=== PATIENT | female | born 1970 | race Hispanic/Latino ===

== ENCOUNTER 2016-11-29 18:31 | Emergency (ER) | payer SELFPAY ==
[~2016-11-29 18:31] MED LIST: OMEP-113 PO
[2016-11-29 18:55] VITALS: BP 120/75; PULSE 85; RESP 20; O2SAT 98
[2016-11-29 19:45] LABS: BASOPHILS % (AUTO) 0.4 % (0-3); EOSINOPHILS % (AUTO) 2.7 % (0-5); Mean Corpuscular Hemoglobin 27.8 pg (27.0-35.0); Mean Corpuscular Volume 86.8 fL (81-100); NEUTROPHILS % (AUTO) 46.6 % (40-74); Platelet Count 315 bil/L (150-400)
[2016-11-29] MEDS ORDERED: Ketorolac 30 mg/mL 2 mL Inj IM ONE (20:35)
--- NOTE | 2016-11-29 21:45 | ED.REPORT ---
HPI- Female Date of Service Nov 29, 2016 ED Provider: Nicholas Byrnes MD A 46 year old female with a history of gastritis, GERD, and nephrolithiasis s/p x2 and tubal ligation presents to the ED with pelvic pain onset six months ago. The pain is described as "pressure" and "similar to labor contractions," worsening one week ago after a PAP smear and again at 0500 this morning. The patient reports associated menorrhagia, headache, dysuria, and dizziness. She denies vaginal bleeding, vaginal discharge, vomiting, diarrhea, hematochezia, fever, or urinary frequency. The patient occasionally takes Ibuprofen for the pain, but this upsets her stomach. She has been seen her PCP multiple times since onset of her symptoms and was seen by a porcelain waxer recently. A pelvic US on 09/22/16 indicated "nonspecific heterogeneity of the uterine myometrium and a left ovarian 2.4 cm mass consistent with physiologic cyst." She had a scheduled biopsy but was unable to follow through because of her pain. The patient speaks Mohawk and her daughter was translating. Nursing Notes Stated Complaint: LOWER ABDOMINAL PAIN Chief Complaint: Female Abdominal Pain Nursing Notes Reviewed: Yes Allergies: Coded Allergies: hydrocodone (Verified Adverse Reaction, Intermediate, vomit, 12/14/15) oxycodone (Verified Adverse Reaction, Mild, vomit, 12/14/15) Scheduled Omeprazole Magnesium (Omeprazole) 20 Mg Capsule.dr 40 MG PO TID General Time Seen by MD: 21:04 Chief Complaint Pelvic pain Hx Obtained From: Patient Arrived By: Walk-in Sudden in Onset?: No Onset Occurred: More than a week ago... (6 months) Symptom Duration: Since onset Location: : Abdomen lower Quality: Painful Severity: Current: Moderate Severity: Maximum: Moderate Associated with: Reports: UTI symptoms... (Dysuria), Denies: Fever, Vomiting Pertinent Negative: Relieved by nothing Related History: Reports: Abdominal surgery Recent Healthcare: Recent doctor visit Similar Sx Previous: Yes Past Medical History Past Medical History Gastritis GERD Nephrolithiasis Past Surgical History Reports: (x2) Reports: Tubal ligation Smoking History Never Smoker Social History Alcohol Use: Denies alcohol use Other Social History: Good social support, Lives with children Ambulatory Status Independent Review of Systems Review of Systems Note: + Menorrhagia Constitutional: Denies: Fever GI: Denies: Diarrhea, Hematochezia, Vomiting Female: Reports: Dysuria, Pelvic pain, Denies: Urinary frequency, Vaginal bleeding - abnl, Vaginal discharge Neurologic: Reports: Dizziness, Headache Complete sys rev & neg: except as marked. Physical Exam Initial Vital Signs Vital Signs (First) Date Time Temp Pulse Resp B/P Pulse Ox O2 Delivery O2 Flow Rate FiO2 11/29/16 18:55 36.3 85 20 120/75 98 Room Air Initial VS: Reviewed Head / Eyes: Atraumatic, Normocephalic ENT: Conjunctiva normal, No scleral icterus Neck: Supple, Full range of motion Respiratory: No respiratory distress Skin: Warm, Dry Neurologic: Alert, Oriented, Nonfocal Psychiatric: Mood/affect normal, Behavior normal, Normal thought content General/Constitutional: Awake, Alert Abdomen: BS normoactive Tenderness/Guarding/Rebound: Positive: Tender suprapubic Interpretation & Diagnostics URINE DIPSTICK: 1.015 sp gravity 7 pH Trace Protein Normal Glucose Normal Urobilinogen + Bilirubin ~ 250 Dashawn/ml Blood Otherwise Negative Lab Results Interpretation Result Diagram: 11/29/16191911/29/161919 Test 11/29/16 19:20 11/29/16 21:56 White Blood Count 7.1th/mm3 (3.8-10.1) Red Blood Count 4.32mil/mm3 (3.90-5.20) Hemoglobin 12.0g/dL (12.0-15.6) Hematocrit 37.5% (35.0-46.0) Mean Corpuscular Volume 86.8fL (81-100) Mean Corpuscular Hemoglobin 27.8pg (27.0-35.0) Mean Corpuscular Hemoglobin Concent 32.0% (32.0-37.0) Red Cell Distribution Width 14.2% (12.3-15.4) Platelet Count 315bil/L (150-400) Neutrophils (%) (Auto) 46.6% (40-74) Lymphocytes (%) (Auto) 39.2% (14-46) Monocytes (%) (Auto) 11.0% (4-12) Eosinophils (%) (Auto) 2.7% (0-5) Basophils (%) (Auto) 0.4% (0-3) Sodium Level 139mEq/L (134-144) Potassium Level 4.0mEq/L (3.5-5.2) Chloride Level 102mEq/L (97-108) Carbon Dioxide Level 24mmol/L (18-29) Blood Urea Nitrogen 15mg/dL (6-24) Creatinine 0.68mg/dL (0.57-1.00) Estimat Glomerular Filtration Rate 135mL/min (>59) Glucose Level 129mg/dL (60-99) Calcium Level 8.5mg/dL (8.5-10.1) Magnesium Level 2.0mg/dL (1.6-2.6) Total Bilirubin 0.2mg/dL (0.0-1.2) Aspartate Amino Transf (AST/SGOT) 20U/L (0-50) Alanine Aminotransferase (ALT/SGPT) 17U/L (0-32) Alkaline Phosphatase 70U/L (25-150) Total Protein 7.5g/dL (6.4-8.4) Albumin 3.9g/dL (3.4-5.0) Lipase 46U/L (13-60) Hold Teixeira Top Tube Received (Received) Urine Color Yellow (YELLOW) Urine Appearance Clear (CLEAR,HAZY) Urine pH 6.0 (5.0-8.0) Urine Specific [place] 1.040 (1.003-1.035) Urine Protein Negativemg/dL (NEG,TRACE) Urine Glucose (UA) Negativemg/dL (NEGATIVE) Urine Ketones Negativemg/dL (NEGATIVE) Urine Occult Blood Negative (NEGATIVE) Urine Nitrite Negative (NEGATIVE) Urine Bilirubin Negative (NEGATIVE) Urine Urobilinogen Normalmg/dL (NORMAL) Urine Leukocyte Esterase Negative (NEGATIVE) Urine RBC 0-2/hpf (0-2) Urine WBC 0-5/hpf (0-5) Urine Epithelial Cells Few/hpf (NONE-MOD) Urine Crystals None seen (NONE SEEN) Urine Bacteria Few/hpf (NONE-FEW) Urine Hyaline Casts None/lpf (NONE) Urine Granular Casts None seen (NONE SEEN) Urine Waxy Casts None seen (NONE SEEN) Urine Red Blood Cell Casts None seen (NONE SEEN) Urine White Blood Cell Casts None seen (NONE SEEN) Urine Mucus None seen (None Seen) Urine Trichomonas None seen (NONE SEEN) Urine Yeast None (NONE SEEN) Urinalysis Comment None Urine Culture Reflexed Not indicated Re-Eval/Medical Decision Source of Hx: Old records Re-Evaluation/Progress : Time of Eval: 22:32 Patient Status: Condition improved Re-Evaluation/Progress Note: Discussed with patient lab results, diagnosis, and plan for discharge. Follow-up and return to the ER instructions given. Patient agrees with plan for care and all questions were addressed. Consultation : Referral / Consult Name: Joanna Cruz MD Call Returned at: 22:22 Icing Maker: Agrees with eval, Agrees with plan Note: Senior [employer] Et[employer] Developer evaluation analyst: Clinic is aware of patient's case and has been made aware she was here tonight. Counseled Regarding: Diagnosis, Lab results, Need for follow-up, When/why to return to ED Discharge & Departure Impression: Primary Impression: Pelvic pain Disposition: Home Discharge Condition All VS Reviewed: Yes Condition: Stable Additional Instructions: ED evaluation included interview exam, labs and review of records. Case was discussed with evaluation analyst porcelain waxer covering [facility]. We advise contacting them for follow-up as soon as possible. there is not an acute problem causing the pain tonight. Use ibuprofen 800mg 3 times a day, take with food. return to ED for fevers, vomiting or severe vaginal bleeding- bleeding that soaks through clothes. Referrals: Jaz Ramos MD (PCP) Scribe Attestation Portions of this note were transcribed by Elda Levin. I, Dr. Byrnes, personally performed the history, physical exam, and medical decision-making; I reviewed and confirmed the accuracy of the information in the transcribed note. Signed by: Suni Velasco, 11/29/2016, 23:01 copies to: Jaz Ramos MD, Donald L MD Nov 29, 2016 21:45 ELDA LEVIN Nov 29, 2016 22:04
[2016-11-29 22:10] LABS: APPEARANCE,URINE CLEAR (CLEAR,HAZY); COLOR,URINE YELLOW (YELLOW); OCCULT BLOOD,URINE NEGATIVE (NEGATIVE); UROBILINOGEN,URINE NORMAL (NORMAL)
[2016-11-29 22:51] VITALS: BP 112/74; PULSE 84; RESP 20; O2SAT 99
[2017-01-03] MEDS ORDERED: IBUP800T28 PO (09:41)
[2017-01-03] MEDS ORDERED: ROB500 PO (09:41)
== END 2016-11-29 22:52 | disposition home or self-care (01) ==
LOC: SED 18:31
DX: R10.2 Pelvic and perineal pain (principal); N92.0 Excessive and frequent menstruation with regular cycle; R51 Headache; R42 Dizziness and giddiness; R30.0 Dysuria; K21.9 Gastro-esophageal reflux disease without esophagitis; Z88.5 Allergy status to narcotic agent
CPT/HCPCS: 36415; 80053; 81000; 81025; 83690; 83735; 85025; 96372; 99284; J1885

== ENCOUNTER 2017-01-04 11:45 | Day surgery (SDC) | payer SELFPAY ==
[2017-01-04] VITALS (11 sets, daily range): BP systolic 102–135; BP diastolic 44–71; PULSE 71–93; RESP 12–18; O2SAT 94–98
[~2017-01-04] VITALS: Ht 154.9 cm; Wt 83.2 kg
[~2017-01-04 11:45] MED LIST changes: +IBUP800T28 PO; -OMEP-113 PO; +ROB500 PO
[2017-01-04] MEDS ORDERED: fentaNYL-PF 50 mCg/mL 2 mL Inj ONE (11:46)
[2017-01-04] MEDS ORDERED: Ondansetron 2 mg/mL 2 mL Inj ONE (11:46)
[2017-01-04] MEDS: Lactated Ringer's 1,000 ML IV SCH ×2 (11:55→14:24)
--- NOTE | 2017-01-04 13:53 | PCM.HPANE ---
Patient Data Surgeon Admitting Provider: Attending Provider:Elicia Pantoja MD Primary Care Physician:Jaz Ramos MD Other Provider:Valentina Louiseingham Anesthesia Reason for Visit Abnormal Uterine Bleeding Ht/WT & BMI Height (Feet): 5 Height (Inches): 1 Weight (Kilograms): 83.2 Body Mass Index 34.00 Allergies Coded Allergies: hydrocodone (Verified Adverse Reaction, Intermediate, vomit, 12/14/15) oxycodone (Verified Adverse Reaction, Mild, vomit, 12/14/15) Past Anesthesia History Anesthesia History: Denies:: Abnormal Airway, Anesthesia Reactions, Difficult Intubation, Fam Anesthesia Reaction, Fam Malignant Hypertherm, Malignant Hyperthermia Diabetes History Hx Diabetes?: No MRSA MRSA: No Medications Hypertension Medication: No Home Meds Incl Beta Olga: No Reported Medications Ibuprofen 800 Mg [id number] Mg PO TID PRN For Pain Ref 0 01/03/17 Methocarbamol 500 Mg [id number] Mg PO TID PRN For Pain 01/03/17 Discontinued Reported Medications Omeprazole Magnesium (Omeprazole)20 Mg Capsule.dr40 Mg PO TID 30 Days Ref 0 05/20/14 History History of ENT Problems?: No HEENT History: Denies:: Abnormal Airway Difficult Intubation Dysphagia Hearing Problem Hx of Heart Problems?: No Cardiovascular History: Denies:: AICD Edema Hypertension Pacemaker Valvular Heart Disease Hx of Respiratory Problem?: No Respiratory History: Denies:: Asthma COPD Emphysema Oxygen Administration Use of C-PAP Machine Use of Inhalers / NEBS Hx Neurologic Problems?: Yes Neurological History: Positive for:: Headaches Denies:: Alzheimer's Disease CVA Dementia Dizziness Parkinson's Disease Seizures Hx of GI Problems?: Yes Gastrointestinal History: Positive for:: Gastroesphageal Reflux Heartburn Rectal Bleeding Denies:: Cirrhosis Diverticulitis Gastrointestinal Bleeding Hiatal Hernia Hx of Problems?: Yes Genitourinary History: Positive for:: Kidney Stones (remote hx of kidney stones) Denies:: Urinary Tract Infection Female Hx: Denies:: Currently (hx tubal ligation) Endometriosis Pelvic Inflammatory Problems with Breasts? Skin History: Denies:: History Skin Disorders? Pressure Ulcers Musculoskeletal History: Positive for:: Back Injury (sciatica- affecting right leg) Denies:: Fibromyalgia Joint Replacement Musculoskeletal Trauma Hx of Psycho/Social Problems?: Yes Psycho Social History: Positive for:: Suicide Attempt (remote hx of at age 17 ) Denies:: Anxiety Bipolar Disorder Hx Depression Hx Surgeries?: Yes (c-sections x2, tubal ligation) Hx Any Other Health Problems?: Yes Other History: Positive for:: Hospitalization Denies:: Cancer Endocrine Disease Thyroid Disease History Blood Transfusions: Denies:: Blood Transfuse Reaction Blood Transfusions Hx Diabetes: No Hx Alcohol Use: NoHx Substance Use: No Smoking Status: Never Smoker Have You Smoked inLast 12 mo: No Stop/Bang P-Blood Pressure: treated: No B- Body Mass Index > 35 kg/m2: Yes A- Age over 50: No N- Neck Large Circumference: No G- Gender Male: No Risk Assessment Category Category 1A: Patient has history of documented sleep apnea, and HAS NOT received any narcotic, sedative or anesthesia administration during this stay. Category 1B: Patient has history of documented sleep apnea, and HAS received any narcotic , sedative or anesthesia administration during this stay Category 2: Patient has SUSPECTED Obstructive Sleep Apnea, and HAS received any narcotic , sedative or anesthesia administration during this stay. Category 3: Patient has SUSPECTED Obstructive Sleep Apnea and HAS NOT received narcotic, sedative or anesthesia administration during this stay. Category 4: Outpatient in Procedural Areas with known sleep apnea or who screen positive for High Risk via the STOP/BANG questionnaire. Exam Exam Vital Signs Vital Signs Date Time Temp Pulse Resp B/P Pulse Ox O2 Delivery O2 Flow Rate FiO2 01/04/17 13:16 36.5 71 18 102/44 98 Room Air General Appearance: Alert, Oriented X3, Cooperative HEENT/AIRWAY: MP 2, Neck Movement (THick, FROM), Mouth Opening (Upper Partial) Lungs: Clear to Auscultation Heart: Exam Unremarkable Meds/Labs/Diagnostics Admission Meds Current Medications Lactated Ringer's (Lr) 1,000 ml @ 120 mls/hr Q8H20M IV Last administered on 11:55; Start 01/04/17 at 05:00; Stop 01/04/17 at 13:19; Status DC Acetaminophen (Tylenol) 1,000 mg PREOP ONCE PO Last administered on 01/04/17 13:49; Start 01/04/17 at 06:00; Stop 01/04/17 at 06:01; Status DC Gabapentin (Neurontin) 600 mg STK-MED ONCE .ROUTE Last administered on 13:48; Start 01/04/17 at 13:45; Stop 01/04/17 at 13:46; Status DC Celecoxib (CeleBREX) 200 mg STK-MED ONCE .ROUTE Last administered on 01/04/17 13:48; Start 01/04/17 at 13:45; Stop 01/04/17 at 13:46; Status DC Scopolamine (Transderm-Scop Patch) 1.5 mg STK-MED ONCE TOPICAL Last administered on 01/04/17 13:48; Start 01/04/17 at 13:46; Stop 01/04/17 at 13:47 ; Status DC Plan Impression Patient chart reviewed, patient interviewed and anesthestic plan with risks, benefits, and alternatives discussed, and informed consent obtained. NPO Status: > 8HRS ASA Physical Status: ASA2 Mod Systemic Disease Anesthetic Plan: GA Bene/Risks/Altern/Consents: Yes HP Complete Prior to Induction: Yes Anastacio Pozo MD Jan 04, 2017 13:53
[2017-01-04] MEDS ORDERED: Lactated Ringer's 500 ML IV PRN (14:51)
[2017-01-04] MEDS ORDERED: Lactated Ringer's 1,000 ML IV SCH (14:51)
[2017-01-04] MEDS ORDERED: Atropine 0.4 mg/mL Inj IVPUSH PRN (14:55)
[2017-01-04] MEDS ORDERED: Ondansetron 2 mg/mL 2 mL Inj IVPUSH PRN (14:55)
[2017-01-04] MEDS ORDERED: Dexamethasone 4 mg/mL Inj IVPUSH PRN (14:55)
[2017-01-04] MEDS ORDERED: HYDROmorphone 1 mg/mL Inj IVPUSH PRN (14:55)
[2017-01-04] MEDS ORDERED: EPHEDrine Sulfate 50 mg/mL Inj IVPUSH PRN (14:55)
[2017-01-04] MEDS ORDERED: hydrALAZINE 20 mg/mL Inj IVPUSH PRN (14:55)
[2017-01-04] MEDS ORDERED: fentaNYL-PF 50 mCg/mL 2 mL Inj IVPUSH PRN (14:55)
[2017-01-04] MEDS ORDERED: Phenylephrine 10,000 mCg/mL Inj IVPUSH PRN (14:55)
[2017-01-04] MEDS ORDERED: Labetalol 5 mg/mL 4 mL Inj IV PRN (14:55)
--- NOTE | 2017-01-04 15:13 | PCM.ANEP1 ---
Post Anesthesia Phase 1 PACU Phase 1 Assessment Vital Signs Vital Signs Date Time Temp Pulse Resp B/P Pulse Ox O2 Delivery O2 Flow Rate FiO2 01/04/17 13:16 36.5 71 18 102/44 98 Room Air Anesthetic Administered: GA Level of Alertness: Awake, talking CALDERON's with Equal Strength: Yes Pain: Yes Pain Scale Score: 8 Nausea or Vomiting: No Oxygen Delivery: Room Air Lungs: Normal Air Movement Anastacio Pozo MD Jan 04, 2017 15:13
[2017-01-04] MEDS: HYDROmorphone 0.5 mg/0.5 mL iSecure Syringe IVPUSH PRN ×2 (15:15→15:54)
--- NOTE | 2017-01-04 15:26 | PCM.DIOB ---
Obstetrical Disch Instruction Date of Service: Jan 04, 2017 Dates of Hospitalization Date of Hospital Admission OUT PATIENT SURGERY 01/04/17 Providers Admitting Physician: Primary Care Physician: Jaz Ramos MD Attending Physician: Elicia Pantoja MD Discharge Diagnosis Discharge Diagnosis Abnormal uterine bleeding status post hysteroscopy and dilation and curettage Problems: Diet Discharge Diet: No restrictions Activity Discharge Activity-General: Pelvic Rest for 6 weeks (no sex, no tampons and no douching), Balance rest and activity, No lifting >15 pounds for 2 weeks Dressing and Incisional Care Hygiene: May shower, NO bathtub, hot tub or whirlpool Follow Up Plan Follow-up Provider (F9): Elicia Pantoja MD Follow-up appointment: Weeks (Two) Call your provider for: Fever or Chills, Shortness of breath, Heavy vaginal bleeding, Heavy bleeding, Epigastric pain, Excessive constipation, Vaginal discomfort, Red painful breasts Elicia Pantoja MD Jan 04, 2017 15:26
[2017-01-04] MEDS ORDERED: MEDR10TA9 PO (15:29)
[2017-01-04] MEDS ORDERED: IBUP800T28 PO (15:29)
--- NOTE | 2017-01-05 02:39 | OP ---
[address] [address] OPERATIVE REPORT PATIENT: HARPER GRIFFITH : 1970 MR#: [id number] ADMIT: 01/04/2017 JOB ID: [id number] DATE OF SURGERY: 01/04/2017 PREOPERATIVE DIAGNOSIS(ES): Abnormal uterine bleeding. POSTOPERATIVE DIAGNOSIS(ES): 1. Abnormal uterine bleeding. 2. endometrial polyp. PROCEDURE: 1. Hysteroscopy. 2. Dilatation and curettage. COMPLICATIONS: None. SURGEON: Elicia Pantoja MD. MASCARA MOLDER: None. ESTIMATED BLOOD LOSS: 20 cc. INTRAVENOUS FLUID: 700 mL crystalloid fluid. URINE OUTPUT: The bladder was drained prior to the procedure, 50 cc of clear urine. ANESTHESIA: General. SPECIMEN: Endocervical curettings and endometrial curettings. FINDINGS: Exam under anesthesia revealed a mildly enlarged uterus approximately nine weeks in size, mobile with no palpable adnexal masses. Exam is limited by body habitus. Hysteroscopic finding: Endometrial polyp was noted at right upper corner of the endometrial cavity just below the right ostia. Both ostia were visualized. Normal endocervical canal. PROCEDURE: After informed consent was obtained, patient was taken to the operation room. She was placed under general anesthesia. Then, she was placed in dorsal lithotomy position. She was prepped and draped in usual manner for pelvic procedure. A heavy weighted speculum was placed in the posterior vaginal vault. Anterior retractor was placed with good visualization of the cervix. The anterior cervical lip was grasped with single-tooth tenaculum. The cervix was gradually dilated up to size 6 Hegar dilator. Then, hysteroscope was introduced through the cervical os with the findings as mentioned above. The hysteroscope was removed. The cervix was further dilated to accommodate a medium-size curette. Curettage was performed in all four quadrants, obtaining a gritty sensation throughout the endometrial cavity. The hysteroscope was reintroduced. The polyp was visualized initially, noted to be removed. Good curetting durbin noted throughout the endometrial cavity. The hysteroscope was removed. Hysteroscopic pictures were obtained before and after dilatation and curettage. All instruments were removed. Cervix was hemostatic. All instrument, needles and sponge counts were correct x2. Patient tolerated the procedure well and was transferred to the recovery room in stable condition. Elicia Sullivan MD, was present and scrubbed for the entire procedure. ERNIE
--- NOTE | 2017-01-05 08:42 | PCM.ANEP2 ---
Post Anesthesia Evaluation ASA/CMS Post Anesthesia VS in Patient's Normal Range?: Yes Resp Stable; Airway Patent?: Yes CV Function & Hydration Stable: Yes Mental Status Recovered?: Yes Pain control Satisfactory?: Yes N/V Control Satisfactory?: Yes Anastacio Pozo MD Jan 05, 2017 08:42
--- NOTE | 2017-01-08 15:14 | PATH ---
SURGICAL PATHOLOGY Attending Physician:Elicia Pantoja CASE STATUS: Signed Out PATIENT NAME: HARPER GRIFFITH PID: [id number] : 1970 DATE COLLECTED:01/04/2017 00:00 SPECIMEN: 1: Endocervix, Curettage 2: Endometrium, Curettage CLINICAL HISTORY: ABNORMAL UTERINE BLEEDING 1). ENDOCERVICAL CURETTINGS 2). ENDOMETRIAL CURETTING FINAL DIAGNOSIS: 1.ENDOCERVICAL CURETTINGS: ENDOCERVICAL AND SQUAMOUS EPITHELIAL FRAGMENTS WITH CHRONIC ACTIVE INFLAMMATION. NEGATIVE FOR DYSPLASIA AND MALIGNANCY. 2.ENDOMETRIAL CURETTING: FRAGMENTS OF ENDOMETRIAL POLYP AND BENIGN ENDOMETRIUM. NEGATIVE FOR HYPERPLASIA, ATYPIA AND NEOPLASIA. ICD10 CODE N84.0 GROSS DESCRIPTION: The specimen is received in two formalin filled containers labeled with the patient's name. 1). The specimen is sublabeled "endocervical curetting" and consists of a less than 0.25 cc aggregate of mucoid material and blood which is entirely submitted in cassette 1A. 2). The specimen is sublabeled "endometrial curetting" and consists of a approximately a 1.5 cc aggregate of tissue, mucoid material and blood which is entirely submitted in cassette 2A. 01/05/2017 [facility] MICRO DESCRIPTION: See diagnosis. ICD-9 CODES: CPT CODES: 1: 76751 2: 82987 Electronically Signed Out Morena Alexander MD [facility] Pathology [facility], [place] [address] Technical component performed at [facility], [address] [place] [address] Ave[address], [place], [address]
== END 2017-01-04 23:59 | disposition home or self-care (01) ==
LOC: SAS 11:45
PROVIDERS: ATTEND Obstetrics & Gynecology
DX: N84.0 Polyp of corpus uteri (principal); N93.9 Abnormal uterine and vaginal bleeding, unspecified; F32.9 Major depressive disorder, single episode, unspecified; G47.30 Sleep apnea, unspecified; E66.9 Obesity, unspecified; Z68.35 Body mass index [BMI] 35.0-35.9, adult
CPT/HCPCS: 36415; 58558; 86850; J1100; J1170; J2250; J2405; J3010; J7120